=== PATIENT | female | born 1985 | race Caucasian/White ===

== ENCOUNTER 2017-05-29 20:54 | Emergency (ER) | payer OTHER, MEDICAID ==
[2017-05-29] MEDS ORDERED: ONDANSETRON HCL IV 4 MG/2 ML VIAL IV ONE (21:17)
[2017-05-29] MEDS ORDERED: 0.9 % SODIUM CHLORIDE 1,000 ML BAG IV ONE (21:17)
[2017-05-29] MEDS ORDERED: FAMOTIDINE IV 20 MG/2 ML VIAL IVP ONE (21:17)
[2017-05-29] MEDS ORDERED: SUCRALFATE 1 G/10 ML UD PO ONE (21:18)
--- NOTE | 2017-05-29 21:21 | Emergency Department Record ---
History of Present Illness - General Chief Complaint: Abdominal Pain Stated Complaint: ABD PAIN Time Seen by Provider: 05/29/17 21:09 Source: Patient Mode of Arrival: Ambulatory Limitations: No limitations - History of Present Illness Initial Comments: The patient is here due to upper abdominal pain off and on for about 3 weeks. She states the pain is intermittent and is a sharp stabbing pain mainly in the upper abdomen. It sometimes is worse after eating. She has been nauseated but has not vomited. There is no reported fever, chills, dysuria, unusual vaginal bleeding or discharge, or constipation. The patient did deliver a baby vaginally 4 weeks ago. She states she had similar issues after her last baby but it did stop spontaneously. MD Complaint: Abdominal pain Onset/Timin -: Week(s) Location: Epigastric Radiation: Back Severity: Severe Quality: Sharp Consistency: Intermittent, Getting worse Improves With: Nothing Worsens With: Nothing - Related Data Patient : No Home Medications Medication Instructions Recorded Confirmed Last Taken Levothyroxine Sodium 50 mcg PO DAILY 05/29/17 05/29/17 Unknown [Levothyroxine Sodium] Allergies Allergy/AdvReac Type Severity Reaction Status Date / Time NO KNOWN DRUG ALLERGY Allergy Uncoded 01/31/14 10:15 Travel Screening - Travel/Exposure Within Last 30 Days Have you traveled within the last 30 days?: No Review of Systems Constitutional: Denies: Chills, Fever Eyes: Denies: Eye discharge ENT: Denies: Congestion Respiratory: Denies: Cough, Dyspnea Past Medical History - SOCIAL HISTORY Smoking Status: Never smoker Alcohol Use: None Drug Use: None - RESPIRATORY Hx Respiratory Disorders: No - CARDIOVASCULAR Hx Cardio Disorders: No - NEURO Hx Neuro Disorders: No - GI Hx GI Disorders: No - Hx Genitourinary Disorders: No - ENDOCRINE Hx Endocrine Disorders: No - MUSCULOSKELETAL Hx Musculoskeletal Disorders: No - PSYCH Hx Psych Problems: No - HEMATOLOGY/ONCOLOGY Hx Hematology/Oncology Disorders: No Family Medical History Any Significant Family History?: No Physical Exam - General General Appearance: Alert, Oriented x3, Cooperative, No acute distress - Head Head exam: Atraumatic, Normocephalic, Normal inspection - Eye Eye exam: Normal appearance, PERRL - Neck Neck exam: Normal inspection, Full ROM. negative: Tenderness - Respiratory Respiratory exam: Normal lung sounds bilaterally. negative: Respiratory distress - Cardiovascular Cardiovascular Exam: Regular rate, Normal rhythm, Normal heart sounds - GI/Abdominal GI/Abdominal exam: Soft, Tenderness (There is diffuse upper abdominal tenderness with no guarding or rebound.). negative: Distended, Rebound, Rigid Course Vital Signs 05/29/17 21:06 Temperature 97.5 F L Pulse Rate [ 62 Pulse Ox Probe] Respiratory 16 Rate Blood Pressure 124/55 [Left Arm] Pulse Ox 100 - Reevaluation(s) Reevaluation #1: The patient states the pain is not improved with the GI medicines. We will give her some Morphine for pain and order an abdominal CT. 05/29/17 21:50 Reevaluation #2: The patient is doing better at this time. Her pain is much improved. We are waiting on her CT presently. 05/29/17 22:22 Reevaluation #3: The patient is doing very well at this time. She denies any pain or nausea. I did explain to her that her CT only demonstrates significant colonic constipation causing a partial distal small bowel obstruction. The patient has only had an umbilical hernia repair for abdominal surgeries, has been eating with no vomiting and distension, and really has no risk factors for an obstruction. Due to that fact we will order the patient a fleets enema and a bottle of Mg Citrate for home. 05/30/17 01:23 05/30/17 01:26 Reevaluation #4: The patient is doing very well at this time. She has no pain or discomfort. On exam her abdomen is very soft and nontender in all 4 quads. She has very active bowel sounds and has no distension. I explained to her that at this time she appears very stable for discharge. She will drink the bottle of Mg Citrate for home and see her PCP early next week. 05/30/17 01:50 Medical Decision Making - Lab Data Result diagrams: 05/29/17 21:22 05/29/17 21:22 Disposition Disposition: Discharge Clinical Impression: Abdominal pain Qualifiers: Abdominal location: generalized Qualified Code(s): R10.84 - Generalized abdominal pain Disposition: Home, Self-Care Condition: (1) Good Instructions: Constipation (ED), Abdominal Pain (ED) Additional Instructions: Please drink 1/2 of the bottle in the morning and the other 1/2 in the evening. Please use a stool softener for 3 days to get cleaned out. Please see your PCP early next week for recheck if needed. Return to the ER for any increased pain, nausea, vomiting, fever, or bloating. Forms: Patient Portal Access Time of Disposition: 01:53 Quality - Quality Measures Quality Measures: N/A - Blood Pressure Screening View Details: Yes Does Patient Have Any of the Following: No Blood Pressure Classification: Normal BP Reading Systolic Measurement: 102 Diastolic Measurement: 76 Screening for High Blood Pressure: < Normal BP, F/U Not Required > [[id number]]
[2017-05-29 21:28] LABS: BASO % 0.5 % (0-6); EOS % 5.2 % (0-6); GRAN % 43.8 % (47-80); HEMATOCRIT 40.5 % (35.0-47.0); HEMOGLOBIN 13.6 gm/dl (11.6-16.0); LYMPH % 42.3 % (16-45); MEAN CELL VOLUME 97.8 fl (81-97); MEAN CORPUSCULAR HEMOGLOBIN 32.9 pg (27-33); MEAN CORPUSCULAR HGB CONC 33.6 g/dl (32-36); MEAN PLATELET VOLUME 10.1 fl (7.4-10.4); MONO % 8.2 % (0-9); PLATELET COUNT 203 K/uL (130-400); RED BLOOD COUNT 4.14 M/uL (3.80-5.40); RED CELL DISTRIBUTION WIDTH 11.2 % (11.5-14.5); URINE APPEARANCE CLEAR; URINE BILIRUBIN NEGATIVE (NEGATIVE); URINE BLOOD MODERATE (NEGATIVE); URINE COLOR YELLOW; URINE GLUCOSE (UA) NEGATIVE (NEGATIVE); URINE KETONE NEGATIVE (NEGATIVE); URINE LEUKOCYTE ESTERASE TRACE (NEGATIVE); URINE NITRITE NEGATIVE (NEGATIVE); URINE PROTEIN NEGATIVE (NEGATIVE); URINE UROBILINOGEN 0.2 E.U./dL (0.20 - 1.00); WHITE BLOOD COUNT W/O DIFF 3.7 K/uL (4.2-12.2)
[2017-05-29 21:35] LABS: HCG,QUALITATIVE URINE NEGATIVE (NEGATIVE)
[2017-05-29 21:42] LABS: URINE BACTERIA 1+
[2017-05-29 21:43] LABS: ALBUMIN 4.1 gm/dL (3.5-5.0); ALKALINE PHOSPHATASE 62 U/L (38-126); ALT/SGPT 56 U/L (9-52); ANION GAP 6.4 (7-16); AST/SGOT 40 U/L (14-36); BILIRUBIN,TOTAL 0.62 mg/dL (0.2-1.3); BLOOD UREA NITROGEN 14 mg/dL (7-17); CARBON DIOXIDE 28.6 mmol/L (22-30); CREATININE 0.6 mg/dL (0.52-1.04); EST GLOMERULAR FILTRATION RATE > 60 ml/min; GLUCOSE,RANDOM 77 mg/dL (70-110); LIPASE 103 U/L (23-300); TOTAL PROTEIN 6.9 gm/dL (6.3-8.2)
[2017-05-29] MEDS ORDERED: MORPHINE SULFATE 5 MG/ML PFS IVP ONE (21:49)
[2017-05-29] MEDS ORDERED: HYDROMORPHONE HCL 1MG/ML **SYRINGE IVP ONE (22:05)
[2017-05-30] MEDS ORDERED: MAGNESIUM CITRATE 296 ML BTL PO ONE (01:50)
--- NOTE | 2017-05-31 15:50 | CT SCAN REPORT ---
DATE: 05/30/2017 at 12:04 a.m. EXAM: CT SCAN OF THE ABDOMEN AND PELVIS WITH CONTRAST. HISTORY: Epigastric pain for the past two to three weeks. Four weeks . TECHNIQUE: Standard CT imaging of the abdomen and pelvis was performed with oral and intravenous contrast. A total of 100 mL of Omnipaque 300 was administered. Additional coronal and sagittal reformatted images were also performed. COMPARISON: 03/15/2012. FINDINGS: The lung bases are clear. The liver, gallbladder, biliary tree, pancreas, spleen, and adrenal glands are normal. The kidneys and ureters are unremarkable. The stomach is distended with oral contrast material and ingested food material. There are no focal abnormalities. There is a large amount of stool within the colon. There are multiple distended small bowel loops throughout, likely due to the stool within the colon. There are no focal inflammatory changes. The appendix is visualized and is normal. There is a small amount of free fluid within the pelvis. The uterus is mildly enlarged and edematous which is likely due to the recent state. There is no pneumoperitoneum. The urinary bladder is normal. There are no acute osseus abnormalities. IMPRESSION: 1. THERE IS A LARGE AMOUNT OF STOOL WITHIN THE COLON PRODUCING A RELATIVE SMALL BOWEL OBSTRUCTION WITH MULTIPLE DISTENDED SMALL BOWEL LOOPS. 2. A SMALL AMOUNT OF FREE FLUID IS PRESENT WITHIN THE PELVIS. 3. ENLARGED, EDEMATOUS UTERUS, LIKELY DUE TO THE RECENT STATE. JOB NUMBER: [id number] MTDD
== END 2017-05-30 02:08 | disposition home or self-care (01) ==
LOC: ER 20:54
DX: O90.89 Other complications of the puerperium, not elsewhere classified (principal); R10.84 Generalized abdominal pain; K59.00 Constipation, unspecified; R11.0 Nausea
CPT/HCPCS: 74177; 80048; 80076; 81001; 81025; 83690; 85025; 96374; 96375; 99284; J1170; J2405; J7030